=== PATIENT | female | born 1940 | race Caucasian/White ===

== ENCOUNTER → 2019-02-03 12:34 | Outpatient (CLI) | payer MEDICARE, SELFPAY ==
[2019-02-03 13:24] LABS: Add Manual Diff / Slide Review NO; Basophils Absolute Auto 0 /uL (0-100); Basophils Percent Auto 0.5 % (0-2); Eosinophils Absolute Auto 200 /uL (0-450); Eosinophils Percent Auto 1.9 % (2-4); Hematocrit 42.9 % (36-46); Lymphocytes Absolute Auto 1200 /uL (1100-4500); Lymphocytes Percent Auto 14.2 % (25-40); Mean Corpuscular HGB Conc 32.6 % (30-36); Mean Corpuscular Hemoglobin 30.2 PG (26-34); Mean Corpuscular Volume 92.4 fL (80-100); Monocytes Absolute Auto 500 /uL (0-900); Monocytes Percent Auto 6.4 % (3-14); Neutrophils Absolute Auto 6400 /uL (1500-7000); Platelet Count 204 X10^3/uL (150-400); Red Blood Cell Count 4.64 X10^6/uL (4.0-5.2); Red Cell Distribution Width 15.6 % (11.6-14.8); White Blood Cell Count 8.3 X10^3/uL (4.5-11.0)
[2019-02-03 13:58] LABS: Alanine Aminotransferase 35 IU/L (9-52); Albumin 4.4 g/dL (3.5-5.0); Albumin Globulin Ratio 1.9 (1.0-2.8); Alkaline Phosphatase 142 U/L (38-126); Aspartate Aminotransferase 38 IU/L (14-36); Bilirubin Total 1.4 mg/dL (0.2-1.3); Blood Urea Nitrogen 15 mg/dL (7-17); Calcium 9.5 mg/dL (8.4-10.2); Carbon Dioxide 33 mmol/L (22-32); Chloride 99 mmol/L (98-107); Cholesterol 155 mg/dL (140-199); Estimated Glomerular Filt Rate > 60.0 mL/min (>60); Globulin 2.3 g/dL (1.7-4.1); Glucose 99 mg/dL (80-110); HDL Cholesterol 45 mg/dL (40-60); HEMOLYSIS < 15 (0-50); LDL Cholesterol Calculated 81 mg/dL (<100); Magnesium 2.2 mg/dL (1.6-2.3); Potassium 4.8 mmol/L (3.4-5.1); Sodium 140 mmol/L (137-145); Total Protein 6.7 g/dL (6.3-8.2); Triglycerides 146 mg/dL (35-150)
== END ==
PROVIDERS: Visit Provider Internal Medicine Cardiovascular Disease
DX: E78.01 Familial hypercholesterolemia (principal); I49.3 Ventricular premature depolarization
CPT/HCPCS: 36415; 80053; 80061; 83735; 85025

== ENCOUNTER → 2019-02-08 17:09 | Outpatient (CLI) | payer MEDICARE, SELFPAY ==
--- NOTE | 2019-02-08 | DI.RAD.S_ITS ---
PROCEDURE: XR CHEST 2V INDICATIONS: sob/fatigue TECHNIQUE: 2 views of the chest were acquired. COMPARISON: None. FINDINGS: Surgical changes and devices: None. Lungs and pleura: Lungs are clear. Present calcified granulomas in the left lower lobe. No pleural effusions or pneumothorax. Mediastinum: Mediastinal contours are normal. Heart size is normal. Bones and chest wall: No suspicious bony abnormalities. Thoracic spine kyphosis. Osteopenia. Soft tissues appear unremarkable. IMPRESSION: No acute cardiopulmonary abnormality. Dictated by: Gabe Graham M.D. on 02/08/2019 at 17:59 Approved by: Gabe Graham M.D. on 02/08/2019 at 18:00
[2019-02-08 18:41] LABS: B Type Natriuretic Peptide < 100 (<100)
[2019-02-08 18:43] LABS: Alanine Aminotransferase 23 IU/L (<35); Albumin 4.5 g/dL (3.5-5.0); Albumin Globulin Ratio 1.7 (1.0-2.8); Alkaline Phosphatase 141 U/L (38-126); Aspartate Aminotransferase 34 IU/L (14-36); BUN Creatinine Ratio 23.3 (6-22); Bilirubin Total 1.3 mg/dL (0.2-1.3); Blood Urea Nitrogen 14 mg/dL (7-17); Calcium 9.5 mg/dL (8.4-10.2); Carbon Dioxide 34 mmol/L (22-32); Chloride 96 mmol/L (98-107); Estimated Glomerular Filt Rate > 60.0 mL/min (>60); Gamma Glutamyl Transpeptidase 12 U/L (12-43); Globulin 2.6 g/dL (1.7-4.1); Glucose 99 mg/dL (80-110); HEMOLYSIS < 15 (0-50); Magnesium 2.2 mg/dL (1.6-2.3); Potassium 3.9 mmol/L (3.4-5.1); Sodium 139 mmol/L (137-145); Total Protein 7.1 g/dL (6.3-8.2)
[2019-02-08 18:49] LABS: Erythrocyte Sedimentation Rate 28 MM/HR (0-20)
[2019-02-08 19:00] LABS: Free T3, Triiodothyronine Free 3.86 pg/mL (2.77-5.27); Free T4, Direct Thyroxine 1.76 ng/dL (0.78-2.19)
[2019-02-08 19:13] LABS: Thyroid Stimulating Hormone 2.24 uIU/mL (0.47-4.68)
[2019-02-08 19:50] LABS: Folate 18.2 ng/mL (2.76-20.0); Vitamin B12 402 pg/mL (239-931)
[2019-02-11 21:10] LABS: Albumin 4.1 g/dL (3.8-4.8); Alpha 1 Globulin 0.3 g/dL (0.2-0.3); Alpha 2 Globulin 0.8 g/dL (0.5-0.9); Beta 1 Globulin 0.5 g/dL (0.4-0.6); Gamma Globulin 0.8 g/dL (0.8-1.7); Protein, Total 6.9 g/dL (6.1-8.1)
== END ==
PROVIDERS: Visit Provider Internal Medicine Cardiovascular Disease
DX: R63.4 Abnormal weight loss (principal); R94.5 Abnormal results of liver function studies; I25.110 Atherosclerotic heart disease of native coronary artery with unstable angina pectoris; M26.69 Other specified disorders of temporomandibular joint; R53.83 Other fatigue; R06.02 Shortness of breath
CPT/HCPCS: 36415; 71046; 80053; 82607; 82746; 82977; 83735; 83880; 84155; 84165; 84439; 84443; 84481; 85651

== ENCOUNTER → 2019-02-10 12:26 | Outpatient (CLI) | payer MEDICARE, SELFPAY | PROVIDERS: Visit Provider Internal Medicine Cardiovascular Disease | DX: I25.110 Atherosclerotic heart disease of native coronary artery with unstable angina pectoris (principal); R94.5 Abnormal results of liver function studies; M26.69 Other specified disorders of temporomandibular joint; R53.83 Other fatigue | CPT/HCPCS: 86335 ==

== ENCOUNTER → 2019-08-22 12:11 | Outpatient (CLI) | payer MEDICARE, SELFPAY ==
[2019-08-22 12:53] LABS: Bacteria Urine None Seen; RBC Urine None Seen (0-5/HPF); WBC Urine None Seen (0-5/HPF)
[2019-08-22 14:05] LABS: Appearance Urine UA CLEAR; Bilirubin Urine UA NEGATIVE (NEGATIVE); Color Urine UA YELLOW; Glucose Urine UA NEGATIVE (Negative); Ketones Urine UA NEGATIVE (NEGATIVE); Leukocyte Esterase Urine UA NEGATIVE (NEGATIVE); Nitrite Urine UA NEGATIVE (Negative); Occult Blood Urine UA NEGATIVE (Negative); Protein Urine UA NEGATIVE (Negative); Specific Gravity Urine UA 1.015 (1.000-1.035); Urobilinogen Urine UA 0.2 E.U./dL (0.2)
[2019-08-22 14:11] LABS: pH Urine UA 6.5 (4.5-8.0)
[2019-08-22 14:13] LABS: Culture Indicated Urine Cult Not Indicated; Urine Comments Microscopic Normal
[2019-08-22 14:15] LABS: Add Manual Diff / Slide Review NO; Basophils Absolute Auto 0 /uL (0-100); Basophils Percent Auto 0.5 % (0-2); Eosinophils Absolute Auto 200 /uL (0-450); Eosinophils Percent Auto 2.2 % (2-4); Hematocrit 39.8 % (36-46); Hemoglobin 13.4 g/dL (12.0-16.0); Lymphocytes Absolute Auto 1300 /uL (1100-4500); Lymphocytes Percent Auto 18.4 % (25-40); Mean Corpuscular HGB Conc 33.7 % (30-36); Mean Corpuscular Hemoglobin 31.1 PG (26-34); Mean Corpuscular Volume 92.3 fL (80-100); Monocytes Absolute Auto 500 /uL (0-900); Monocytes Percent Auto 7.5 % (3-14); Neutrophils Absolute Auto 5100 /uL (1500-7000); Neutrophils Percent Auto 71.4 % (50-75); Platelet Count 195 X10^3/uL (150-400); Red Blood Cell Count 4.31 X10^6/uL (4.0-5.2); Red Cell Distribution Width 15.7 % (11.6-14.8); White Blood Cell Count 7.2 X10^3/uL (4.5-11.0)
[2019-08-22 14:34] LABS: Alanine Aminotransferase 16 IU/L (<35); Albumin 4.3 g/dL (3.5-5.0); Albumin Globulin Ratio 1.4 (1.0-2.8); Alkaline Phosphatase 137 U/L (38-126); Aspartate Aminotransferase 31 IU/L (14-36); BUN Creatinine Ratio 22.2 (6-22); Bilirubin Total 0.9 mg/dL (0.2-1.3); Blood Urea Nitrogen 14 mg/dL (7-17); Calcium 9.2 mg/dL (8.4-10.2); Carbon Dioxide 32 mmol/L (22-32); Chloride 99 mmol/L (98-107); Estimated Glomerular Filt Rate > 60.0 mL/min (>60); Globulin 3.1 g/dL (1.7-4.1); Glucose 113 mg/dL (80-110); HEMOLYSIS < 15 (0-50); Magnesium 2.2 mg/dL (1.6-2.3); Potassium 4.5 mmol/L (3.4-5.1); Sodium 138 mmol/L (137-145); Total Protein 7.4 g/dL (6.3-8.2); Uric Acid 3.3 mg/dL (2.5-6.2)
[2019-08-22 14:39] LABS: NT-proBNP (BNP-Adult 18+) 266 pg/mL (<450)
[2019-08-22 14:47] LABS: Free T4, Direct Thyroxine 1.64 ng/dL (0.78-2.19)
[2019-08-22 15:01] LABS: Thyroid Stimulating Hormone 1.87 uIU/mL (0.47-4.68)
== END ==
PROVIDERS: PCP Student in an Organized Health Care Education/Training Program; Referring Provider Internal Medicine Cardiovascular Disease; Visit Provider Internal Medicine Cardiovascular Disease
DX: R06.02 Shortness of breath (principal); I49.3 Ventricular premature depolarization; R35.1 Nocturia; M10.9 Gout, unspecified
CPT/HCPCS: 36415; 80053; 81001; 83735; 83880; 84439; 84443; 84550; 85025

== ENCOUNTER → 2019-08-24 10:28 | Outpatient (CLI) | payer MEDICARE, SELFPAY ==
[2019-08-26 13:13] LABS: Immunoglobulin A, Serum 198 mg/dL (64-422); Immunoglobulin G,Serum 737 mg/dL (586-1602); Immunoglobulin M, Serum 167 mg/dL (26-217)
== END ==
PROVIDERS: PCP Student in an Organized Health Care Education/Training Program; Referring Provider Internal Medicine Cardiovascular Disease; Visit Provider Internal Medicine Cardiovascular Disease
DX: R06.02 Shortness of breath (principal); I49.3 Ventricular premature depolarization; R35.1 Nocturia
CPT/HCPCS: 36415; 82784; 84155; 86334; 86335

== ENCOUNTER → 2020-03-06 15:03 | Outpatient (CLI) | payer MEDICARE, SELFPAY ==
[2020-03-06 16:32] LABS: Alanine Aminotransferase 15 IU/L (<35); Albumin 4.4 g/dL (3.5-5.0); Albumin Globulin Ratio 1.4 (1.0-2.8); Alkaline Phosphatase 127 U/L (38-126); Aspartate Aminotransferase 30 IU/L (14-36); BUN Creatinine Ratio 21.9 (6-22); Bilirubin Total 0.9 mg/dL (0.2-1.3); Blood Urea Nitrogen 16 mg/dL (7-17); Calcium 9.2 mg/dL (8.4-10.2); Carbon Dioxide 38 mmol/L (22-32); Chloride 100 mmol/L (98-107); Cholesterol 256 mg/dL (140-199); Estimated Glomerular Filt Rate > 60.0 mL/min (>60); Globulin 3.2 g/dL (1.7-4.1); Glucose 103 mg/dL (80-110); HDL Cholesterol 48 mg/dL (40-60); HEMOLYSIS < 15 (0-50); LDL Cholesterol Calculated 168 mg/dL (<100); Magnesium 2.2 mg/dL (1.6-2.3); Potassium 4.4 mmol/L (3.4-5.1); Sodium 138 mmol/L (137-145); Total Protein 7.6 g/dL (6.3-8.2); Triglycerides 202 mg/dL (35-150)
[2020-03-06 16:39] LABS: NT-proBNP (BNP-Adult 18+) 350 pg/mL (<450)
== END ==
PROVIDERS: PCP Student in an Organized Health Care Education/Training Program; Referring Provider Internal Medicine Cardiovascular Disease; Visit Provider Internal Medicine Cardiovascular Disease
DX: E78.5 Hyperlipidemia, unspecified (principal); R06.02 Shortness of breath; I49.3 Ventricular premature depolarization
CPT/HCPCS: 36415; 80053; 80061; 83735; 83880

== ENCOUNTER → 2020-10-08 14:25 | Outpatient (CLI) | payer MEDICARE, SELFPAY ==
[2020-10-08 15:07] LABS: Alanine Aminotransferase 16 IU/L (<35); Albumin Globulin Ratio 1.3 (1.0-2.8); Alkaline Phosphatase 132 U/L (38-126); Aspartate Aminotransferase 31 IU/L (14-36); Bilirubin Total 0.8 mg/dL (0.2-1.3); Blood Urea Nitrogen 20 mg/dL (7-17); Calcium 9.1 mg/dL (8.4-10.2); Carbon Dioxide 34 mmol/L (22-32); Chloride 103 mmol/L (98-107); Estimated Glomerular Filt Rate > 60.0 mL/min (>60); Glucose 99 mg/dL (80-110); HEMOLYSIS < 15 (0-50); Magnesium 2.2 mg/dL (1.6-2.3); Potassium 4.1 mmol/L (3.4-5.1); Sodium 140 mmol/L (137-145)
[2020-10-08 15:16] LABS: NT-proBNP (BNP-Adult 18+) 572 pg/mL (<450)
[2020-10-10 12:54] LABS: Immunoglobulin A, Serum 204 mg/dL (64-422); Immunoglobulin G,Serum 755 mg/dL (586-1602); Immunoglobulin M, Serum 174 mg/dL (26-217)
== END ==
PROVIDERS: PCP Student in an Organized Health Care Education/Training Program; Referring Provider Internal Medicine Cardiovascular Disease; Visit Provider Internal Medicine Cardiovascular Disease
DX: R06.02 Shortness of breath (principal); I49.3 Ventricular premature depolarization; E78.5 Hyperlipidemia, unspecified
CPT/HCPCS: 36415; 80053; 82784; 83735; 83880; 84155; 86334

== ENCOUNTER 2020-12-27 13:23 | Emergency (ER) | payer MEDICARE, SELFPAY ==
[2020-12-27 13:26] VITALS: BP 149/63; PULSE 59; RESP 16; TEMP 36.6; O2SAT 97; BMI 28.1
--- NOTE | 2020-12-27 16:26 | DI.RAD.S_ITS ---
PROCEDURE: XR CHEST 1V INDICATIONS: eval for esophageal perf TECHNIQUE: One view of the chest was acquired. COMPARISON: [facility], CR, XR CHEST 2V, 02/08/2019, 17:18. FINDINGS: Surgical changes and devices: None. Lungs and pleura: Calcified granulomata within the left lower lobe laterally. Lungs are otherwise clear. No pleural effusions or pneumothorax. Mediastinum: Mediastinal contours appear normal. Heart size is normal. Bones and chest wall: No suspicious bony lesions. Overlying soft tissues appear unremarkable. IMPRESSION: No acute process. Dictated by: Shon Malcolm M.D. on 12/27/2020 at 16:42 Approved by: Shon Malcolm M.D. on 12/27/2020 at 16:43
--- NOTE | 2020-12-27 16:32 | ED_ITS ---
HPI - URI/Sore Throat <Gerry Washington PA-C - Last Filed: 12/27/20 17:31> General Chief Complaint: Upper Respiratory Symptoms Stated Complaint: sore throat, lost voice Time Seen by Provider: 12/27/20 16:07 Source: patient Mode of arrival: Ambulatory History of Present Illness HPI Narrative: Yessenia presents today with chief complaint of loss of voice, throat pain and coughing that started abruptly 2 days ago after she tried to swallow 1 of her medications. She reports that she had fallen asleep and then got up in the middle of the night at 2:00 a.m. She took her IMDUR and fell to get stuck in the back of her throat. This caused her to cough and she had immediate loss of voice. The next day she did not have any voice and continued to have discomfort in the back of her throat. She is able to tolerate oral intake normally and has been eating popsicles as well as blended up foods without significant difficulty. Her voice started to come back yesterday and the pain seems to be improving. She denies any significant fever, chest pain, difficulty breathing, difficulty swallowing, or any other acute concerns or complaints at this time. Related Data Home Medications Medication Instructions Recorded Confirmed allopurinol 100 mg tablet 100 mg PO TID tab 09/02/18 12/27/20 atorvastatin PO 09/02/18 12/27/20 furosemide 20 mg tablet (Lasix) 20 mg PO DAILY 09/02/18 12/27/20 potassium chloride 8 mEq 8 meq PO BID 09/02/18 12/27/20 capsule,extended release propranolol 60 mg tablet 60 mg PO TID 09/02/18 12/27/20 isosorbide dinitrate 5 mg tablet 5 mg PO BID 12/27/20 12/27/20 Previous Rx's Medication Instructions Recorded sulfamethoxazole 800 1 tab PO BID #14 tab 09/02/18 mg-trimethoprim 160 mg tablet (Bactrim DS) Allergies Allergy/AdvReac Type Severity Reaction Status Date / Time adhesive Allergy Severe hives and Verified 12/27/20 12:15 makes skin dissappear rubbing alcohol Allergy Severe hives Uncoded 12/27/20 12:15 Review of Systems <Gerry Washington PA-C - Last Filed: 12/27/20 17:31> Review of Systems Narrative: As per HPI Patient History <Gerry Washington PA-C - Last Filed: 12/27/20 17:31> Social History Smoking Status: Never smoker Smoking Status: Never smoker Substance Use Type: does not use Exam <Gerry Washington PA-C - Last Filed: 12/27/20 17:31> Narrative Exam Narrative: Const General: cooperative, healthy appearing, comfortable and no acute distress Nutritional Appearance: average body habitus and well nourished Orientation: alert and oriented x3 HENMT Head: normal to inspection and normocephalic Ears: hearing grossly normal bilaterally, external ears normal Nose: external nose normal, nares normal and no nasal discharge Face and sinus: normal facial exam, sinuses nontender and face symmetric Mouth: oral mucosae normal, lip normal, tongue normal and moist mucous membranes Teeth and gingiva: dentition normal and gingiva normal Throat: posterior oropharynx normal, uvula midline, no postnasal drainage and no uvular edema Eyes periorbital findings normal, eyelids normal, conjunctivae normal Neck: normal visual inspection, full ROM, no lymphadenopathy, no anterior neck swelling Resp normal respiratory effort, able to speak in complete sentences but has hoarse voice, not labored and no respiratory distress, no stridor, clear to auscultation bilaterally, no crackles, no rales and no wheezes Cardiac Regular rate and rhythm Initial Vital Signs Initial Vital Signs: Vital Signs Temperature 97.9 F 12/27/20 13:26 Pulse Rate 59 L 12/27/20 13:26 Respiratory Rate 16 12/27/20 13:26 Blood Pressure 149/63 H 12/27/20 13:26 Pulse Oximetry 97 12/27/20 13:26 <Ashley Boles MD - Last Filed: 12/29/20 02:41> Initial Vital Signs Initial Vital Signs: Vital Signs Temperature 97.9 F 12/27/20 13:26 Pulse Rate 59 L 12/27/20 13:26 Respiratory Rate 16 12/27/20 13:26 Blood Pressure 149/63 H 12/27/20 13:26 Pulse Oximetry 97 12/27/20 13:26 Course <Gerry Washington PA-C - Last Filed: 12/27/20 17:31> Orders Ordered: Discontinued Medications Al Hydrox/Mg Hydrox/Simethicone 20 ml/ Lidocaine HCl 15 ml 0 ml PO NOW ONE Stop: 12/27/20 16:27 Last Admin: 12/27/20 17:09 Dose: 35 ml Documented by: INDIO Vital Signs Vital signs: Vital Signs - 8 hr 12/27/20 13:26 Temperature 97.9 F Pulse Rate 59 L Respiratory Rate 16 Blood Pressure 149/63 H Pulse Oximetry 97 <Ashley Boles MD - Last Filed: 12/29/20 02:41> Orders Ordered: Discontinued Medications Al Hydrox/Mg Hydrox/Simethicone 20 ml/ Lidocaine HCl 15 ml 0 ml PO NOW ONE Stop: 12/27/20 16:27 Last Admin: 12/27/20 17:09 Dose: 35 ml Documented by: INDIO Vital Signs Vital signs: Vital Signs - 8 hr 12/27/20 13:26 Temperature 97.9 F Pulse Rate 59 L Respiratory Rate 16 Blood Pressure 149/63 H Pulse Oximetry 97 MDM - URI/Sore Throat <Gerry Washington PA-C - Last Filed: 12/27/20 17:31> [facility] Narrative Medical decision making narrative: Patient is able to tolerate oral intake at this time. Her symptoms are starting to improve. Chest x-ray does not show any pulmonary consolidation, pneumomediastinum, or other acute abnormalities. We will have her continue to do dietary modifications to help improve symptoms. If symptoms fail to improve as expected, she would likely benefit from an endoscopy. I do not think that is necessary at this time given her symptoms are improving and she is tolerating oral intake. Strict ER return precautions were discussed with the patient. Patient verbalizes understanding and agrees to plan and has no further concerns at this time. Thank you A [id number] system was used with the dictation of this note. Please disregard any spelling or grammatical errors. Discharge Plan Departure Patient Disposition: Home Clinical Impression: Foreign body sensation in throat, Pill esophagitis Instructions: DI for Esophagitis Activity Restrictions/Additional Instructions: It was very nice to meet you this evening. I am glad that your symptoms are starting to improve. Please continue to eat easy to swallow foods and fluids with the expectation that over the next few days your throat will get much better. Recommend continued use of honey. If you experience worsening pain, difficulty swallowing, neck stiffness, fever, shortness of breath or any other new or worsening symptoms please return immediately for re-evaluation. Otherwise, please call your PCP and schedule a follow-up appointment. If your symptoms do not improve within the next few days you will likely need to have an endoscopy. Thank you Gerry Washington PA-C Prescriptions: No Action potassium chloride 8 mEq capsule, extended release 8 meq PO BID RF: 0 propranolol 60 mg tablet 60 mg PO TID RF: 0 allopurinol 100 mg tablet 100 mg PO TID RF: 0 furosemide [Lasix] 20 mg tablet 20 mg PO DAILY RF: 0 atorvastatin PO RF: 0 sulfamethoxazole-trimethoprim [Bactrim DS] 800-160 mg tablet 1 tab PO BID Qty: 14 RF: 0 isosorbide dinitrate 5 mg tablet 5 mg PO BID RF: 0 Referrals: Adelso Evans MD [Primary Care Provider] - <Ashley Boles MD - Last Filed: 12/29/20 02:41> Cosign ED Attending Cosignature Attestation: I was immediately available in the department for consultation throughout this patient's visit. I agree with documentation as above. Ashley Boles MD
[2020-12-27] MEDS: MAG HYDROX/ALUMINUM/SIMETH SUS 20 ML, LIDOCAINE VISCOUS 2% 15 ML PO (17:09)
[2020-12-27 17:45] VITALS: BP 121/92; PULSE 60; RESP 16; TEMP 36.9; O2SAT 95
== END 2020-12-27 17:47 | disposition home or self-care (01) ==
PROVIDERS: Emergency Provider Physician Assistant; PCP Student in an Organized Health Care Education/Training Program
DX: K20.80 Other esophagitis without bleeding (principal); R09.89 Other specified symptoms and signs involving the circulatory and respiratory systems; Z20.822 Contact with and (suspected) exposure to COVID-19
CPT/HCPCS: 71045; 87635; 99283

== ENCOUNTER → 2021-05-29 12:53 | Outpatient (CLI) | payer MEDICARE, SELFPAY ==
[2021-05-29 14:28] LABS: Add Manual Diff / Slide Review NO; Basophils Absolute Auto 0 /uL (0-100); Basophils Percent Auto 0.4 % (0-2); Eosinophils Absolute Auto 100 /uL (0-450); Eosinophils Percent Auto 1.2 % (2-4); Hematocrit 42.4 % (36-46); Hemoglobin 13.8 g/dL (12.0-16.0); Lymphocytes Absolute Auto 1000 /uL (1100-4500); Lymphocytes Percent Auto 11.5 % (25-40); Mean Corpuscular HGB Conc 32.6 % (30-36); Mean Corpuscular Volume 92.1 fL (80-100); Monocytes Absolute Auto 500 /uL (0-900); Neutrophils Absolute Auto 6700 /uL (1500-7000); Neutrophils Percent Auto 80.9 % (50-75); Platelet Count 183 X10^3/uL (150-400); Red Blood Cell Count 4.61 X10^6/uL (4.0-5.2); Red Cell Distribution Width 15.5 % (11.6-14.8); White Blood Cell Count 8.3 X10^3/uL (4.5-11.0)
[2021-05-29 15:04] LABS: Lactate (Lactic Acid) 0.8 mmol/L (0.7-2.1)
[2021-05-29 15:09] LABS: Alanine Aminotransferase 22 IU/L (<35); Albumin 4.5 g/dL (3.5-5.0); Albumin Globulin Ratio 1.3 (1.0-2.8); Alkaline Phosphatase 138 U/L (38-126); Aspartate Aminotransferase 33 IU/L (14-36); BUN Creatinine Ratio 20.6 (6-22); Bilirubin Total 1.1 mg/dL (0.2-1.3); Blood Urea Nitrogen 14 mg/dL (7-17); Calcium 9.2 mg/dL (8.4-10.2); Carbon Dioxide 35 mmol/L (22-32); Chloride 99 mmol/L (98-107); Cholesterol 167 mg/dL (140-199); Estimated Glomerular Filt Rate > 60.0 mL/min (>60); Globulin 3.4 g/dL (1.7-4.1); Glucose 113 mg/dL (80-110); HDL Cholesterol 56 mg/dL (40-60); HEMOLYSIS < 15 (0-50); Iron 63 ug/dL (37-170); LDL Cholesterol Calculated 86 mg/dL (<100); Lactate Dehydrogenase 407 U/L (313-618); Potassium 3.7 mmol/L (3.4-5.1); Sodium 139 mmol/L (137-145); Total Protein 7.9 g/dL (6.3-8.2); Triglycerides 126 mg/dL (35-150)
[2021-05-29 15:20] LABS: Percent Iron Saturation 20 % (15-50); Total Iron Binding Capacity 316 ug/dL (265-497); Transferrin 247 mg/dL (206-381)
[2021-05-29 15:40] LABS: Ferritin 150 ng/mL (11-264)
[2021-05-29 16:11] LABS: Folate 10.3 ng/mL (2.76-20.0); Vitamin B12 368 pg/mL (239-931)
== END ==
PROVIDERS: PCP Student in an Organized Health Care Education/Training Program; Referring Provider Internal Medicine Cardiovascular Disease; Visit Provider Internal Medicine Cardiovascular Disease
DX: E78.5 Hyperlipidemia, unspecified (principal); D64.9 Anemia, unspecified; Z20.822 Contact with and (suspected) exposure to COVID-19; R94.5 Abnormal results of liver function studies
CPT/HCPCS: 36415; 80053; 80061; 82607; 82728; 82746; 83540; 83550; 83605; 83615; 85025